=== PATIENT | female | born 1955 | race Caucasian/White ===

== ENCOUNTER 2017-10-30 14:52 | Outpatient (CLI) | payer OTHER | END 2017-10-30 15:02 | disposition home or self-care (01) | LOC: MAMO-SONO 14:52 | DX: Z12.31 Encounter for screening mammogram for malignant neoplasm of breast (principal); N64.89 Other specified disorders of breast ==

== ENCOUNTER 2018-11-12 08:32 | Outpatient (CLI) | payer OTHER | END 2018-11-12 08:38 | disposition home or self-care (01) | LOC: MAMO-SONO 08:32 | DX: M81.0 Age-related osteoporosis without current pathological fracture (principal); N60.11 Diffuse cystic mastopathy of right breast; Z13.820 Encounter for screening for osteoporosis; N64.4 Mastodynia; N80.8 Other endometriosis; D25.1 Intramural leiomyoma of uterus; N83.291 Other ovarian cyst, right side ==

== ENCOUNTER 2018-11-12 13:49 | Outpatient (CLI) | payer OTHER | END 2018-11-12 14:05 | disposition home or self-care (01) | LOC: NUCLEAR 13:49 | DX: M81.0 Age-related osteoporosis without current pathological fracture (principal); Z13.820 Encounter for screening for osteoporosis ==